=== PATIENT | female | born 1940 | race Caucasian/White ===

== ENCOUNTER 2017-12-22 08:42 | Emergency (ER) | payer MEDICARE ==
[~2017-12-22] VITALS: Ht 152.4 cm; Wt 79.0 kg
[2017-12-22] MEDS ORDERED: ketorolac tromethamine 15mg/ml inj. IM ONE (09:15)
[2017-12-22 09:42] VITALS: BP 124/90
== END 2017-12-22 09:46 | disposition home or self-care (01) ==
LOC: ER 08:43
DX: S50.11XA Contusion of right forearm, initial encounter (principal); S50.311A Abrasion of right elbow, initial encounter; M54.6 Pain in thoracic spine; Z88.1 Allergy status to other antibiotic agents; Z88.8 Allergy status to other drugs, medicaments and biological substances; Z91.013 Allergy to seafood; W10.9XXA Fall (on) (from) unspecified stairs and steps, initial encounter; Y93.89 Activity, other specified; Y92.89 Other specified places as the place of occurrence of the external cause; Y99.8 Other external cause status
CPT/HCPCS: 96372; 99284; J1885